=== PATIENT | male | born 1990 | race Caucasian/White ===

== ENCOUNTER 2021-08-12 14:57 | Emergency (ER) | payer BC, OTHER ==
[2021-08-12 15:10] VITALS: BP 114/83; PULSE 82; TEMP 97.8; BMI 25.0
== END 2021-08-12 15:18 | disposition home or self-care (01) ==
LOC: JER 14:57 → JERFT 14:57
DX: Z11.52 Encounter for screening for COVID-19 (principal)
CPT/HCPCS: 99283-25; C9803-CS; U0003; U0005